=== PATIENT | male | born 1980 | race Caucasian/White ===

== ENCOUNTER 2021-09-18 17:09 | Emergency (ER) | payer SELFPAY ==
[~2021-09-18] VITALS: Ht 172.7 cm; Wt 105.0 kg
[2021-09-18 18:09] VITALS: BP 145/100
[2021-09-18] MEDS ORDERED: DOXY100T2 MT (18:43)
[2021-09-18] MEDS ORDERED: CEFTRIAXONE SODIUM 1 G/VIAL IM ONE (18:45)
[2021-09-18] MEDS ORDERED: LIDOCAINE HCL 1% 20ML VIAL (Pyxis) INJ INFIL ONE (18:45)
[2021-09-18 19:29] LABS: CLARITY URINE CLEAR (CLEAR); COLOR URINE YELLOW (YELLOW); KETONES URINE NEGATIVE (NEGATIVE); LEUKOCYTE ESTERASE URINE 2+ (NEGATIVE); NITRITE URINE NEGATIVE (NEGATIVE); OCCULT BLOOD URINE NEGATIVE (NEGATIVE); PH URINE 6.5 (4.5-8.0); PROTEIN URINE NEGATIVE (NEGATIVE); SPECIFIC GRAVITY URINE 1.026 (1.005-1.030)
[2021-09-21 04:07] LABS: NEISSERIA GONORRHOEAE NAA Positive (Negative)
== END 2021-09-18 19:05 | disposition home or self-care (01) ==
LOC: ER 17:09
DX: A64 Unspecified sexually transmitted disease (principal); Z88.8 Allergy status to other drugs, medicaments and biological substances; Z79.899 Other long term (current) drug therapy
CPT/HCPCS: 81003; 87086; 87491; 87591; 96372; 99283; J0696